=== PATIENT | male | born 1985 | race Caucasian/White ===

== ENCOUNTER 2025-03-06 11:06 | Emergency (ER) | payer BC, OTHER ==
[~2025-03-06] VITALS: Ht 185.4 cm; Wt 122.5 kg
[~2025-03-06 11:06] MED LIST: CLON0.5T
[2025-03-06] MEDS ORDERED: KETOROLAC TROMETHAMINE 15 MG/ML VIAL ONE (11:31)
[2025-03-06] MEDS ORDERED: ONDANSETRON HCL/PF 4 MG/2 ML VIAL ONE (11:31)
[2025-03-06] MEDS ORDERED: MORPHINE SULFATE INJ 4 MG/ML DISP.SYRIN ONE (11:31)
[2025-03-06 11:34] LABS: BASOPHILS # (AUTO) 0.1 K/uL (0.0-0.2); BASOPHILS % (AUTO) 0.4 % (0.0-2.0); HEMATOCRIT 46 % (39-51); LYMPHOCYTES # (AUTO) 1.1 K/uL (0.8-4.8); LYMPHOCYTES % (AUTO) 8.2 % (20.0-44.0); MEAN CORPUSCULAR HEMOGLOBIN 28 PG (26.0-33.0); MEAN CORPUSCULAR HGB CONC 33 g/dl (31.0-36.0); MEAN CORPUSCULAR VOLUME 85 fL (80-96); MONOCYTES # (AUTO) 0.7 K/uL (0.1-1.30); MONOCYTES % (AUTO) 5.3 % (2.0-12.0); NEUTROPHILS # (AUTO) 11.8 K/uL (1.8-8.9); NEUTROPHILS % (AUTO) 86.1 % (43.0-81.0); PLATELET COUNT (AUTO) 265 K/uL (150-450); RED BLOOD CELL COUNT(AUTO) 5.36 MIL/uL (4.5-6.0); WHITE BLOOD COUNT (AUTO) 13.7 K/uL (4.3-11.0)
[2025-03-06] MEDS: IV NS 0.9% 1,000 ML BAG IV ONE (11:40)
[2025-03-06] MEDS: ONDANSETRON HCL/PF 4 MG/2 ML VIAL IVP ONE (11:41)
[2025-03-06] MEDS: KETOROLAC TROMETHAMINE 15 MG/ML VIAL IV ONE (11:41)
[2025-03-06] MEDS: MORPHINE SULFATE INJ 2 MG/ML DISP.SYRIN IV ONE (11:41)
[2025-03-06 11:46] LABS: CALCIUM, SERUM 10.1 mg/dL (8.5-10.1); POTASSIUM 4.7 mmol/L (3.5-5.1)
[2025-03-06 11:52] LABS: ALBUMIN 4.6 g/dL (3.4-5.0); BILIRUBIN,DIRECT 0.1 mg/dL (0.0-0.2); BILIRUBIN,TOTAL 0.6 mg/dL (0.2-1.0); TOTAL PROTEIN, SERUM 8.1 g/dL (6.4-8.2)
[2025-03-06] MEDS ORDERED: ATROPINE SULFATE INJ 1 MG/ML VIAL ONE (12:28)
[2025-03-06] MEDS ORDERED: MAG HYDROX/AL HYDROX/SIMETH 30 ML UDC ONE (12:28)
[2025-03-06] MEDS ORDERED: PANTOPRAZOLE 40 MG VIAL ONE (12:28)
[2025-03-06] MEDS: ATROPINE SULFATE INJ 1 MG/ML VIAL IV ONE (12:35)
[2025-03-06] MEDS: PANTOPRAZOLE 40 MG VIAL IV ONE (12:36)
[2025-03-06] MEDS: MAG HYDROX/AL HYDROX/SIMETH 30 ML UDC PO ONE (12:37)
[2025-03-06] MEDS ORDERED: PANT40TA2 PO (13:03)
[2025-03-06] MEDS ORDERED: FAMO20TA80 PO (13:03)
[2025-03-06] MEDS ORDERED: ONDA4TAB11 PO (13:03)
[2025-03-06 13:22] VITALS: BP 146/78; TEMP 98.6; O2SAT 100
== END 2025-03-06 13:23 | disposition home or self-care (01) ==
LOC: ER 11:10
DX: R10.13 Epigastric pain (principal); R11.2 Nausea with vomiting, unspecified; F41.9 Anxiety disorder, unspecified; Z88.0 Allergy status to penicillin
CPT/HCPCS: 99285; 96374; 96375; 76705; 96361; 85025; 80048; 83690; 80076; 36415; J1885; J0461; J2270; J2405; J7030; J2470